=== PATIENT | female | born 1955 | race Caucasian/White ===

== ENCOUNTER 2018-06-04 10:51 | Emergency (ER) | payer OTHER ==
[~2018-06-04] VITALS: Ht 127 cm; Wt 94.9 kg
[2018-06-04 10:59] VITALS: Ht 127 cm; Wt 94.9 kg
[2018-06-04] MEDS ORDERED: HYDROCODONE/APAP (5/325) TAB PO ONE (11:30)
[2018-06-04] MEDS ORDERED: IBUPROFEN 600 MG TAB PO ONE (11:30)
[2018-06-04] MEDS ORDERED: NEOM28OI2 TP (11:55)
[2018-06-04] MEDS ORDERED: HYDR-4011 PO (11:55)
[2018-06-04] MEDS ORDERED: IBUP-1542 PO (11:55)
[2018-06-04] MEDS ORDERED: DIPHTH/TET/ACEL PERTUSS (ADULT) 0.5 ML VIAL IM* ONE (12:00)
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
[2018-06-13] MEDS ORDERED: SILV20CR12 TOP (02:50)
== END 2018-06-04 12:26 | disposition home or self-care (01) ==
LOC: FTE 10:51
DX: T21.22XA Burn of second degree of abdominal wall, initial encounter (principal); X12.XXXA Contact with other hot fluids, initial encounter; Y92.9 Unspecified place or not applicable; Z23 Encounter for immunization
CPT/HCPCS: 90715; Z7610; 90471